=== PATIENT | female | born 1975 | race African-American/Black ===

== ENCOUNTER → 2016-03-20 | Outpatient (REF) | payer BC | LOC: LAB 11:31 | PROVIDERS: ATTEND Physician Assistant Surgical | DX: N89.8 Other specified noninflammatory disorders of vagina (principal) | CPT/HCPCS: 87210 ==

== ENCOUNTER → 2016-04-03 | Outpatient (CLI) | payer BC | LOC: RAD 14:58 | PROVIDERS: ATTEND Family Medicine | DX: R06.02 Shortness of breath (principal) | CPT/HCPCS: 71020 ==

== ENCOUNTER → 2016-07-03 | Outpatient (REF) | payer BC ==
[2016-07-03 17:34] LABS: BASOPHILS % (AUTO) 1 % (0-2); EOSINOPHILS # (AUTO) 0.4 10^3uL; EOSINOPHILS % (AUTO) 6 % (0-4); LYMPHOCYTES # (AUTO) 2.4 X10^3; MEAN CORPUSCULAR HGB CONC 33.3 g/dL (31.0-37.0); MEAN PLATELET VOLUME 10.3 FL (6.0-9.5); MONOCYTES # (AUTO) 0.6 X10^3; MONOCYTES % (AUTO) 9 % (3-11); NEUTROPHILS # (AUTO) 2.7 X10^3; NEUTROPHILS % (AUTO) 44 % (51-67); PLATELET COUNT 279 10^3uL (150-450); WHITE BLOOD COUNT 6.15 10^3uL (4.0-11.0)
[2016-07-03 17:39] LABS: MEAN CORPUSCULAR HEMOGLOBIN 34.1 PG (26.0-34.0); MEAN CORPUSCULAR VOLUME 102 FL (80-100)
[2016-07-04 16:52] LABS: HEPATITIS A ANTIBODY IGM Negative; HEPATITIS B CORE ABY IGM Negative; HEPATITIS B SURFACE ANTIGEN C Negative
== END ==
LOC: LAB 17:16
PROVIDERS: ATTEND Family Medicine
DX: Z01.818 Encounter for other preprocedural examination (principal)
CPT/HCPCS: 80074; 85025

== ENCOUNTER → 2016-07-10 | Outpatient (REF) | payer BC ==
[2016-07-10 16:10] LABS: ALBUMIN 4.8 g/dL (3.4-5.0); ANION GAP 17.1 MEQ/L (3-15); CALCULATED IONIZED CALCIUM 4.3 mg/dL (3.8-4.6)
== END ==
LOC: LAB 15:43
PROVIDERS: ATTEND Family Medicine
DX: Z01.818 Encounter for other preprocedural examination (principal); D51.0 Vitamin B12 deficiency anemia due to intrinsic factor deficiency
CPT/HCPCS: 80053; 82607; 82746; 85610; 85730